=== PATIENT | female | born 1945 | race Caucasian/White ===

== ENCOUNTER → 2016-08-14 | Outpatient (CLI) | payer MEDICARE ==
[~2016-08-14] MED LIST: AMIO200T42 PO; APIX5TAB PO; COREG PO; LACT1CAP24 PO; LEVO750T26 PO; LIPITOR PO; LOSA25TA5 PO; METH4TAB2 PO; MULT-717 PO; PT WILL BRING LIST; SPIR25TA3 PO; VALS40TA2 PO; WARF2TAB PO
[2016-08-14 13:20] LABS: TOTAL IRON BINDING CAPACITY 388 mcg/dL (250-450)
== END | disposition home or self-care (01) ==
LOC: CFH 10:36
PROVIDERS: ATTEND Internal Medicine Cardiovascular Disease
DX: I35.8 Other nonrheumatic aortic valve disorders (principal); I34.0 Nonrheumatic mitral (valve) insufficiency; I07.1 Rheumatic tricuspid insufficiency; I37.1 Nonrheumatic pulmonary valve insufficiency; I35.1 Nonrheumatic aortic (valve) insufficiency; I48.91 Unspecified atrial fibrillation; I10 Essential (primary) hypertension; Z79.01 Long term (current) use of anticoagulants; I42.9 Cardiomyopathy, unspecified
CPT/HCPCS: 36415; 83540; 83550; 85025; 93306

== ENCOUNTER 2016-08-30 10:22 | Inpatient (IN) | payer MEDICARE ==
[~2016-08-30] VITALS: Ht 160 cm; Wt 56.2 kg
[2016-08-30] MEDS ORDERED: HYDR-3144 PO (10:42)
[2016-08-30] MEDS ORDERED: PROM25TA10 PO (10:42)
[2016-08-30] MEDS ORDERED: SODIUM CHLORIDE 0.9% 1,000ML IVBOLUS ONE (11:00)
[2016-08-30] MEDS ORDERED: SODIUM CHLORIDE FLUSH 10ML SYR IVF ONE (11:00)
[2016-08-30] MEDS ORDERED: ONDANSETRON 2MG/ML, 2ML IVPush ONE (11:00)
[2016-08-30] MEDS ORDERED: MORPHINE SULFATE 4 MG/ML, 1ML ONE ×2 (11:08→11:30)
[2016-08-30] MEDS ORDERED: ONDANSETRON 2MG/ML, 2ML ONE (11:08)
[2016-08-30] MEDS: MORPHINE SULFATE 4 MG/ML, 1ML IVPush PRN ×2 (11:11→11:33)
[2016-08-30 11:28] LABS: BLOOD UREA NITROGEN 17 mg/dL (7-18)
[2016-08-30] MEDS ORDERED: TEMAZEPAM 15 MG CAPSULE PO PRN (14:00)
[2016-08-30] MEDS ORDERED: POLYETHYLENE GLYCOL 17 GM PACKET PO PRN (14:00)
[2016-08-30] MEDS ORDERED: MORPHINE SULFATE 4 MG/ML, 1ML IVPush PRN (14:00)
[2016-08-30] MEDS ORDERED: DOCUSATE 100 MG CAPSULE PO PRN (14:00)
[2016-08-30] MEDS: D5%-0.45% NACL 1,000 ML IV SCH ×2 (15:10→23:17)
[2016-08-30 16:50] VITALS: BP 127/77
[2016-08-30] MEDS: CARVEDILOL 6.25 MG TABLET PO SCH (17:44)
[2016-08-30] MEDS: HYDROcodone/APAP 5/325 TABLET PO PRN (17:46)
[2016-08-30] MEDS: ONDANSETRON 2MG/ML, 2ML IVP PRN (18:52)
[2016-08-30] MEDS: APIXABAN 2.5 MG TABLET PO SCH (20:35)
[2016-08-30] MEDS ORDERED: APIXABAN 5 MG TABLET PO SCH (21:00)
[2016-08-30 21:14] VITALS: BP 104/62
[2016-08-31] MEDS: HYDROcodone/APAP 5/325 TABLET PO PRN ×7 (00:37→22:40)
[2016-08-31] MEDS: ONDANSETRON 2MG/ML, 2ML IVP PRN ×3 (01:02→22:40)
[2016-08-31 03:31] VITALS: BP 127/76
[2016-08-31] MEDS: CARVEDILOL 6.25 MG TABLET PO SCH ×2 (05:33→18:04)
[2016-08-31] MEDS: D5%-0.45% NACL 1,000 ML IV SCH ×2 (05:34→14:41)
[2016-08-31] MEDS: APIXABAN 2.5 MG TABLET PO SCH ×2 (08:10→20:11)
[2016-08-31 08:29] VITALS: BP 129/77
[2016-08-31] MEDS: PROMETHAZINE 25 MG SUPP PR PRN (12:59)
[2016-08-31 14:30] VITALS: BP 113/73
[2016-08-31 19:43] VITALS: BP 97/57
[2016-09-01 01:10] VITALS: BP 116/70
[2016-09-01] MEDS: PROMETHAZINE 25 MG SUPP PR PRN (02:23)
[2016-09-01] MEDS: HYDROcodone/APAP 5/325 TABLET PO PRN (05:17)
[2016-09-01] MEDS: CARVEDILOL 6.25 MG TABLET PO SCH ×2 (05:17→17:37)
[2016-09-01] MEDS: ONDANSETRON 2MG/ML, 2ML IVP PRN ×2 (05:22→10:23)
[2016-09-01 08:14] VITALS: BP 121/72
[2016-09-01] MEDS: APIXABAN 2.5 MG TABLET PO SCH ×2 (08:43→20:33)
[2016-09-01] MEDS: D5%-0.45% NACL 1,000 ML IV SCH (09:32)
[2016-09-01 13:53] VITALS: BP 108/70
[2016-09-01 18:58] VITALS: BP 126/70
[2016-09-01] MEDS: ACETAMINOPHEN 325 MG TABLET PO PRN (21:40)
[2016-09-02] MEDS: ONDANSETRON 2MG/ML, 2ML IVP PRN (00:23)
[2016-09-02] MEDS: ACETAMINOPHEN 325 MG TABLET PO PRN ×3 (01:44→09:30)
[2016-09-02 03:46] VITALS: BP 118/73
[2016-09-02] MEDS: D5%-0.45% NACL 1,000 ML IV SCH (05:16)
[2016-09-02] MEDS: CARVEDILOL 6.25 MG TABLET PO SCH (06:02)
[2016-09-02 07:30] VITALS: BP 103/67
[2016-09-02] MEDS: APIXABAN 2.5 MG TABLET PO SCH (08:19)
[2016-09-02] MEDS ORDERED: Tramadol Hcl PO (08:35)
== END 2016-09-02 10:07 | disposition home or self-care (01) | DRG 560 ==
LOC: ED 11:53 → EDIP 11:54 → ED 12:01 → 4NOR 13:03 → DCLOUNGE 09-02 09:56
PROVIDERS: ADMIT Internal Medicine; ATTEND Internal Medicine
DX: T84.84XA Pain due to internal orthopedic prosthetic devices, implants and grafts, initial encounter (principal); I42.9 Cardiomyopathy, unspecified; R11.2 Nausea with vomiting, unspecified; E86.0 Dehydration; I10 Essential (primary) hypertension; M25.559 Pain in unspecified hip; G89.18 Other acute postprocedural pain; M25.551 Pain in right hip; K59.00 Constipation, unspecified; I48.91 Unspecified atrial fibrillation; I25.10 Atherosclerotic heart disease of native coronary artery without angina pectoris; M19.90 Unspecified osteoarthritis, unspecified site; D64.9 Anemia, unspecified; T40.605A Adverse effect of unspecified narcotics, initial encounter; Z83.3 Family history of diabetes mellitus; Z85.3 Personal history of malignant neoplasm of breast; Z90.10 Acquired absence of unspecified breast and nipple
CPT/HCPCS: 36415; 80048; 82040; 83605; 85025; 96374; 96375; J2405; J7030

== ENCOUNTER → 2017-10-20 | Outpatient (CLI) | payer MEDICARE ==
[~2017-10-20] MED LIST changes: +HYDR-3245 PO; +PROM25TA10 PO; +Tramadol Hcl PO
[2017-10-20 16:05] LABS: ANION GAP 7 mmol/L (5-15); CALCIUM 9.4 mg/dL (8.5-10.1); CHLORIDE 105 mmol/L (98-107)
[2017-10-20 16:08] LABS: CREATININE 1.28 mg/dL (0.55-1.02)
== END | disposition home or self-care (01) ==
LOC: CFH 11:43
PROVIDERS: ATTEND Internal Medicine Cardiovascular Disease
DX: N18.9 Chronic kidney disease, unspecified (principal)
CPT/HCPCS: 36415; 80048

== ENCOUNTER → 2017-11-27 | Outpatient (CLI) | payer MEDICARE ==
[~2017-11-27] MED LIST changes: -SPIR25TA3 PO; +SPIR25TA5 PO
== END | disposition home or self-care (01) ==
LOC: CVU 10:33
PROVIDERS: ATTEND Internal Medicine Cardiovascular Disease
DX: I34.0 Nonrheumatic mitral (valve) insufficiency (principal); I42.8 Other cardiomyopathies
CPT/HCPCS: 0399T; 93306

== ENCOUNTER → 2018-03-12 | Outpatient (CLI) | payer MEDICARE ==
[~2018-03-12] MED LIST changes: -LOSA25TA5 PO; +LOSA25TA6 PO
== END | disposition home or self-care (01) ==
LOC: RAD 07:48
PROVIDERS: ATTEND Internal Medicine Cardiovascular Disease
DX: I42.8 Other cardiomyopathies (principal)
CPT/HCPCS: 78472; A9560

== ENCOUNTER 2018-05-02 03:21 | Inpatient (IN) | payer MEDICARE ==
[~2018-05-02] VITALS: Ht 160 cm; Wt 59.6 kg
[~2018-05-02 03:21] MED LIST changes: +LOSA25TA25 PO; -LOSA25TA6 PO
[2018-05-02] MEDS ORDERED: LOSA25TA25 PO (03:29)
--- NOTE | 2018-05-02 03:32 | NUR ---
PT WHEELED FROM TRIAGE TO ROOM WITH FAMILY AT .
[2018-05-02 04:10] LABS: BASOPHILS # (AUTO) 0.08 x10^3/uL (0-0.1); BASOPHILS % (AUTO) 1 % (0-1); EOSINOPHILS # (AUTO) 0.21 x10^3/uL (0-0.4); EOSINOPHILS % (AUTO) 3 % (1-7); LYMPHOCYTES # (AUTO) 1.12 x10^3/uL (1-3.4); LYMPHOCYTES % (AUTO) 17 % (22-44); MD NO; MEAN CORPUSCULAR HEMOGLOBIN 36.9 pg (27.0-34.8); MEAN CORPUSCULAR HGB CONC 34.1 g/dL (32.4-35.8); MEAN PLATELET VOLUME 8.8 fL (7.4-10.4); MONOCYTES # (AUTO) 0.62 x10^3/uL (0.2-0.8); MONOCYTES % (AUTO) 10 % (2-9); NEUTROPHILS # (AUTO) 4.52 x10^3/uL (1.8-6.8); NEUTROPHILS % (AUTO) 69 % (42-75); PLATELET COUNT 193 x10^3/uL (130-400); RED BLOOD COUNT 3.46 x10^6/uL (3.82-5.3); RED CELL DISTRIBUTION WIDTH 15.1 % (9.6-15.2)
[2018-05-02 04:20] LABS: ALBUMIN 3.5 g/dL (3.4-5.0); ANION GAP 10 mmol/L (5-15); CALCIUM 8.4 mg/dL (8.5-10.1); CHLORIDE 106 mmol/L (98-107)
[2018-05-02 04:25] LABS: ALANINE AMINOTRANSFERASE 60 U/L (12-78); ALKALINE PHOSPHATASE 180 U/L (45-117); BILIRUBIN,TOTAL 0.5 mg/dL (0.2-1.0); CREATININE 1.32 mg/dL (0.55-1.02); TOTAL PROTEIN 6.4 g/dL (6.4-8.2); TROPONIN I 0.019 ng/mL (0.000-0.045)
[2018-05-02] MEDS ORDERED: METOPROLOL 1 MG/ML, 5ML ONE ×2 (04:43→05:00)
[2018-05-02] MEDS: METOPROLOL 1 MG/ML, 5ML IVPush PRN ×3 (04:52→05:11)
--- NOTE | 2018-05-02 04:52 | NUR ---
PT MEDICATED PER MAR FOR HEART RATE. PT DENIES ANY OTHER NEEDS AT THIS TIME. VSS AND UPDATED IN EMR. PT HAS CALL LIGHT WITHIN REACH.
--- NOTE | 2018-05-02 05:12 | NUR ---
PT MEDICATED PER MAR. PT TOLERATED WELL. QUESTIONS REGARDING AFIB AND EDUCATION PROVIDED TO AND PT. PT DENIES ANY OTHER NEEDS AT THIS TIME. CALL LIGHT IS WITHIN REACH.
--- NOTE | 2018-05-02 06:13 | NUR ---
REPORT OF PT TO PEPITO GARCIA. ALL QUESTIONS ANSWERED. PT EDUCATED ON ROOM ASSINGMENT AND VERBALIZES UNDERSTANDING. PT TRANSPORTED BY TECH TO FLOOR.
[2018-05-02 06:32] VITALS: BP 98/75
[2018-05-02] MEDS ORDERED: CARV6.2512 PO (06:32)
[2018-05-02] MEDS ORDERED: FUROSEMIDE 20 MG/2 ML IV ONE (08:00)
[2018-05-02 08:13] VITALS: BP 96/57
[2018-05-02] MEDS ORDERED: AMIODARONE 900 MG in DEXTROSE 5% 482 ML IV PRN (11:00)
[2018-05-02] MEDS ORDERED: AMIODARONE 150 MG in DEXTROSE 5% 100 ML IV ONE (11:00)
[2018-05-02] MEDS ORDERED: FILTER 0.22 MICRON FOR AMIODARONE IV PRN (11:00)
[2018-05-02] MEDS ORDERED: MAGNESIUM SULFATE 1 GM in SODIUM CHLORIDE 0.9% 50 ML IV ONE (11:30)
[2018-05-02] MEDS ORDERED: GUAIFENESIN/DM 200-20MG, 10ML UDC PO PRN (11:30)
[2018-05-02] MEDS ORDERED: ACETAMINOPHEN 325 MG TABLET PO PRN (11:30)
[2018-05-02] MEDS ORDERED: DOCUSATE 100 MG CAPSULE PO PRN (11:30)
[2018-05-02 13:22] VITALS: BP 95/67
[2018-05-02 19:58] VITALS: BP 92/71
[2018-05-02] MEDS: TRAZODONE 50MG TABLET PO PRN (22:16)
[2018-05-02] MEDS: APIXABAN 5 MG TABLET PO SCH (22:16)
[2018-05-02] MEDS: CARVEDILOL 6.25 MG TABLET PO SCH (22:16)
[2018-05-02] MEDS: AMIODARONE 200 MG TABLET PO SCH (22:16)
[2018-05-03 03:55] VITALS: BP 97/59
[2018-05-03 06:54] VITALS: BP 101/73
[2018-05-03] MEDS: APIXABAN 5 MG TABLET PO SCH ×2 (07:53→21:01)
[2018-05-03] MEDS: AMIODARONE 200 MG TABLET PO SCH ×2 (07:53→21:01)
[2018-05-03] MEDS: CARVEDILOL 6.25 MG TABLET PO SCH ×2 (07:54→21:02)
[2018-05-03] MEDS ORDERED: LOSARTAN 25MG TABLET PO SCH (09:00)
[2018-05-03] MEDS ORDERED: FUROSEMIDE 20 MG/2 ML IV ONE (10:30)
[2018-05-03] MEDS ORDERED: PROPOFOL 10 MG/ML, 20ML ONE (10:31)
[2018-05-03] MEDS: BENZONATATE 100 MG CAPSULE PO PRN ×3 (11:16→21:18)
[2018-05-03] MEDS: FUROSEMIDE 40 MG/4 ML IV SCH ×2 (11:50→21:02)
[2018-05-03 12:12] VITALS: BP 90/66
[2018-05-03 19:12] VITALS: BP 103/70
[2018-05-03] MEDS: TRAZODONE 50MG TABLET PO PRN (21:01)
[2018-05-04 01:37] VITALS: BP 98/62
[2018-05-04 05:20] LABS: ANION GAP 9 mmol/L (5-15); CALCIUM 8.2 mg/dL (8.5-10.1); CHLORIDE 101 mmol/L (98-107); CREATININE 1.45 mg/dL (0.55-1.02)
[2018-05-04 07:02] VITALS: BP 105/71
[2018-05-04] MEDS: APIXABAN 5 MG TABLET PO SCH (07:53)
[2018-05-04] MEDS: CARVEDILOL 6.25 MG TABLET PO SCH (07:54)
[2018-05-04] MEDS: AMIODARONE 200 MG TABLET PO SCH (07:54)
[2018-05-04] MEDS: BENZONATATE 100 MG CAPSULE PO PRN (08:01)
[2018-05-04] MEDS ORDERED: POTASSIUM CHLORIDE 20 MEQ TAB.ER.PRT PO SCH ×2 (08:30→17:00)
[2018-05-04] MEDS ORDERED: LOSARTAN 25MG TABLET PO SCH (09:00)
[2018-05-04] MEDS ORDERED: AMIODARONE 200 MG TABLET PO SCH (09:00)
[2018-05-04] MEDS ORDERED: AMIO200T42 PO (09:43)
[2018-05-04] MEDS ORDERED: FURO20TA3 PO (09:43)
[2018-05-04] MEDS ORDERED: POTA20TA6 PO (09:43)
[2018-05-04] MEDS ORDERED: FUROSEMIDE 20 MG TABLET ONE (11:37)
[2018-05-05] MEDS ORDERED: FUROSEMIDE 20 MG TABLET PO SCH (09:00)
[2018-05-05] MEDS ORDERED: POTASSIUM CHLORIDE 10 MEQ TABLET.ER PO SCH (09:00)
== END 2018-05-04 11:51 | disposition home or self-care (01) | DRG 291 ==
LOC: ED 04:49 → EDIP 05:21 → 5SO 06:18 → DCLOUNGE 05-04 11:35
PROVIDERS: ADMIT Internal Medicine; ATTEND Internal Medicine
PROC: 5A2204Z Restoration of Cardiac Rhythm, Single (ICD-10-PCS; principal; 2018-05-03 10:30)
DX: I13.0 Hypertensive heart and chronic kidney disease with heart failure and stage 1 through stage 4 chronic kidney disease, or unspecified chronic kidney disease (principal); I50.23 Acute on chronic systolic (congestive) heart failure; D68.69 Other thrombophilia; I48.0 Paroxysmal atrial fibrillation; N18.3 Chronic kidney disease, stage 3 (moderate); M19.90 Unspecified osteoarthritis, unspecified site; Z66 Do not resuscitate; I44.7 Left bundle-branch block, unspecified; I42.9 Cardiomyopathy, unspecified; I25.10 Atherosclerotic heart disease of native coronary artery without angina pectoris; E87.6 Hypokalemia; Z79.01 Long term (current) use of anticoagulants; Z82.49 Family history of ischemic heart disease and other diseases of the circulatory system; Z83.3 Family history of diabetes mellitus; Z85.3 Personal history of malignant neoplasm of breast; Z90.11 Acquired absence of right breast and nipple; Z96.643 Presence of artificial hip joint, bilateral; B34.9 Viral infection, unspecified; D50.9 Iron deficiency anemia, unspecified
CPT/HCPCS: 36415; 71045; 80048; 80053; 83735; 83880; 84443; 84484; 85025; 93005; 96374; 99285; G0378; J1940; J2704; J3475; J0282; J7060

== ENCOUNTER 2018-05-13 07:29 | Day surgery (SDC) | payer MEDICARE ==
[~2018-05-13] VITALS: Ht 160 cm; Wt 53.6 kg
[~2018-05-13 07:29] MED LIST changes: +CARV6.2512 PO; +FURO20TA3 PO; +POTA20TA6 PO
[2018-05-13 08:07] VITALS: BP 98/63
[2018-05-13 08:30] LABS: ANION GAP 11 mmol/L (5-15); CALCIUM 9.2 mg/dL (8.5-10.1); CHLORIDE 111 mmol/L (98-107); CREATININE 1.56 mg/dL (0.55-1.02)
[2018-05-13] MEDS ORDERED: PROPOFOL 10 MG/ML, 20ML ONE (09:43)
== END 2018-05-13 10:59 | disposition home or self-care (01) ==
LOC: CACL 07:29
PROVIDERS: ATTEND Internal Medicine Cardiovascular Disease
DX: I48.0 Paroxysmal atrial fibrillation (principal); I42.9 Cardiomyopathy, unspecified; I34.0 Nonrheumatic mitral (valve) insufficiency; I50.21 Acute systolic (congestive) heart failure; E78.00 Pure hypercholesterolemia, unspecified; D64.9 Anemia, unspecified; Z79.01 Long term (current) use of anticoagulants
CPT/HCPCS: 36415; 80048; 92960; J2704

== ENCOUNTER 2018-06-01 11:19 | Outpatient (CLI) | payer MEDICARE ==
[2018-06-01 12:47] LABS: ANION GAP 5 mmol/L (5-15); CALCIUM 9.1 mg/dL (8.5-10.1); CHLORIDE 109 mmol/L (98-107); CREATININE 1.33 mg/dL (0.55-1.02)
== END 2018-06-01 23:59 | disposition home or self-care (01) ==
LOC: CFH 11:19
PROVIDERS: ATTEND Internal Medicine Cardiovascular Disease
DX: I48.91 Unspecified atrial fibrillation (principal); N18.9 Chronic kidney disease, unspecified
CPT/HCPCS: 36415; 80048

== ENCOUNTER → 2018-07-16 | Outpatient (CLI) | payer MEDICARE ==
[2018-07-16 12:54] LABS: BASOPHILS # (AUTO) 0.05 x10^3/uL (0-0.1); BASOPHILS % (AUTO) 1 % (0-1); EOSINOPHILS % (AUTO) 3 % (1-7); LYMPHOCYTES # (AUTO) 1.23 x10^3/uL (1-3.4); LYMPHOCYTES % (AUTO) 20 % (22-44); MD NO; MEAN CORPUSCULAR HEMOGLOBIN 34.3 pg (27.0-34.8); MEAN CORPUSCULAR HGB CONC 33.9 g/dL (32.4-35.8); MEAN CORPUSCULAR VOLUME 101.3 fL (80-100); MEAN PLATELET VOLUME 9.8 fL (7.4-10.4); MONOCYTES # (AUTO) 0.65 x10^3/uL (0.2-0.8); MONOCYTES % (AUTO) 11 % (2-9); NEUTROPHILS # (AUTO) 3.97 x10^3/uL (1.8-6.8); NEUTROPHILS % (AUTO) 65 % (42-75); PLATELET COUNT 235 x10^3/uL (130-400); RED BLOOD COUNT 4.22 x10^6/uL (3.82-5.3); RED CELL DISTRIBUTION WIDTH 12.9 % (9.6-15.2)
[2018-07-16 15:01] LABS: CHLORIDE 110 mmol/L (98-107)
[2018-07-16 15:31] LABS: ALANINE AMINOTRANSFERASE 21 U/L (12-78); ALBUMIN 3.7 g/dL (3.4-5.0); ALKALINE PHOSPHATASE 92 U/L (45-117); ANION GAP 7 mmol/L (5-15); BILIRUBIN,TOTAL 1.1 mg/dL (0.2-1.0); CALCIUM 9.3 mg/dL (8.5-10.1); CREATININE 1.33 mg/dL (0.55-1.02); T4 (THYROXINE) 8.5 mcg/dL (4.8-13.9); TOTAL PROTEIN 7.3 g/dL (6.4-8.2)
== END | disposition home or self-care (01) ==
LOC: CFH 08:50
PROVIDERS: ATTEND Internal Medicine Cardiovascular Disease
DX: I48.91 Unspecified atrial fibrillation (principal); D64.9 Anemia, unspecified; I42.8 Other cardiomyopathies; I13.0 Hypertensive heart and chronic kidney disease with heart failure and stage 1 through stage 4 chronic kidney disease, or unspecified chronic kidney disease; I50.23 Acute on chronic systolic (congestive) heart failure; N18.3 Chronic kidney disease, stage 3 (moderate); J84.10 Pulmonary fibrosis, unspecified
CPT/HCPCS: 36415; 71046; 80053; 84436; 84443; 84481; 85025

== ENCOUNTER → 2018-07-17 | Outpatient (CLI) | payer MEDICARE | END | disposition home or self-care (01) | LOC: CFH 10:35 | PROVIDERS: ATTEND Internal Medicine Cardiovascular Disease | DX: I08.3 Combined rheumatic disorders of mitral, aortic and tricuspid valves (principal); I10 Essential (primary) hypertension; I48.91 Unspecified atrial fibrillation; Z85.3 Personal history of malignant neoplasm of breast; R29.898 Other symptoms and signs involving the musculoskeletal system | CPT/HCPCS: 93306 ==

== ENCOUNTER 2018-09-24 06:27 | Observation (INO) | payer MEDICARE ==
[2018-09-21 10:52] VITALS: BP 134/86
[2018-09-21 10:55] LABS: BASOPHILS # (AUTO) 0.05 x10^3/uL (0-0.1); BASOPHILS % (AUTO) 1 % (0-1); EOSINOPHILS # (AUTO) 0.27 x10^3/uL (0-0.4); EOSINOPHILS % (AUTO) 4 % (1-7); LYMPHOCYTES # (AUTO) 1.22 x10^3/uL (1-3.4); LYMPHOCYTES % (AUTO) 20 % (22-44); MD NO; MEAN CORPUSCULAR HEMOGLOBIN 33.7 pg (27.0-34.8); MEAN CORPUSCULAR HGB CONC 32.3 g/dL (32.4-35.8); MEAN CORPUSCULAR VOLUME 104.3 fL (80-100); MEAN PLATELET VOLUME 7.7 fL (7.4-10.4); MONOCYTES # (AUTO) 0.63 x10^3/uL (0.2-0.8); MONOCYTES % (AUTO) 10 % (2-9); NEUTROPHILS # (AUTO) 4.04 x10^3/uL (1.8-6.8); NEUTROPHILS % (AUTO) 65 % (42-75); PLATELET COUNT 261 x10^3/uL (130-400); RED BLOOD COUNT 4.14 x10^6/uL (3.82-5.3); RED CELL DISTRIBUTION WIDTH 15.5 % (9.6-15.2)
[2018-09-21 11:15] LABS: ANION GAP 10 mmol/L (5-15); CALCIUM 9.7 mg/dL (8.5-10.1); CHLORIDE 108 mmol/L (98-107)
[2018-09-21 11:16] LABS: CREATININE 1.52 mg/dL (0.55-1.02)
[~2018-09-24] VITALS: Ht 160 cm; Wt 50.9 kg
[~2018-09-24 06:27] MED LIST changes: +OMEP20TA62 PO
[2018-09-24] MEDS ORDERED: CEFAZOLIN PMX 1GM/50ML 50 ML IVPB ONE (07:00)
[2018-09-24] MEDS ORDERED: PROPOFOL 50 ML ONE (07:55)
[2018-09-24] MEDS ORDERED: FENTANYL PF 250 MCG/5ML ONE (07:55)
[2018-09-24] MEDS ORDERED: CEFAZOLIN 1,000 MG ONE (07:57)
[2018-09-24] MEDS ORDERED: LIDOCAINE 1%, 20ML ONE (07:57)
[2018-09-24] MEDS ORDERED: ONDANSETRON 2MG/ML, 2ML ONE (08:01)
[2018-09-24] MEDS ORDERED: ONDANSETRON 2MG/ML, 2ML IV PRN (09:30)
[2018-09-24] MEDS ORDERED: EPHEDRINE 50 MG/ML, 1ML IVPush PRN (09:30)
[2018-09-24] MEDS ORDERED: DIAZEPAM 5 MG/ML, 2ML IVPush PRN (09:30)
[2018-09-24] MEDS ORDERED: EPHEDRINE 50 MG/ML, 1ML IM PRN (09:30)
[2018-09-24] MEDS ORDERED: PROMETHAZINE 25 MG/ML, 1ML IV PRN (09:30)
[2018-09-24] MEDS ORDERED: ONDANSETRON ODT 8 MG PO PRN (09:30)
[2018-09-24] MEDS ORDERED: OXYcodone 5 MG/5 ML ORAL.SOL UDC PO PRN (09:30)
[2018-09-24] MEDS ORDERED: MIDAZOLAM 1 MG/ML, 2ML IV PRN (09:30)
[2018-09-24] MEDS ORDERED: DIPHENHYDRAMINE 50 MG/ML, 1ML IVPush PRN (09:30)
[2018-09-24] MEDS ORDERED: FENTANYL PF 100 MCG/2ML IV PRN (09:30)
[2018-09-24] MEDS ORDERED: HYDROmorphone 2 MG/ML, 1ML IVPush PRN (09:30)
[2018-09-24] MEDS ORDERED: ACETAMINOPHEN 325 MG TABLET PO PRN ×2 (09:30→10:00)
[2018-09-24] MEDS ORDERED: HOLD MEDICATION MC PRN (10:00)
[2018-09-24] MEDS ORDERED: FENTANYL PF 100 MCG/2ML ONE (10:08)
[2018-09-24] MEDS ORDERED: HYDROcodone/APAP 7.5-325MG/15ML UDC ONE (10:08)
[2018-09-24] MEDS: SODIUM CHLORIDE 0.9% 1,000 ML IV SCH ×3 (10:15→22:38)
[2018-09-24] MEDS ORDERED: HYDROcodone/APAP 7.5-325MG/15ML UDC PO ONE (10:30)
[2018-09-24 11:15] VITALS: BP 109/68
[2018-09-24 14:30] VITALS: BP 82/48
[2018-09-24] MEDS: CEFAZOLIN PMX 1GM/50ML 50 ML IVPB SCH (16:54)
[2018-09-24 18:34] VITALS: BP 89/49
[2018-09-24] MEDS: SODIUM CHLORIDE FLUSH 10ML SYR IVF SCH (20:18)
[2018-09-24] MEDS: APIXABAN 5 MG TABLET PO SCH (20:19)
[2018-09-24] MEDS: CARVEDILOL 6.25 MG TABLET PO SCH (20:19)
[2018-09-24] MEDS: POTASSIUM CHLORIDE 20 MEQ TAB.ER.PRT PO SCH (20:19)
[2018-09-24] MEDS: FUROSEMIDE 20 MG TABLET PO SCH (20:19)
[2018-09-24 20:22] VITALS: BP 103/56
[2018-09-25] MEDS: CEFAZOLIN PMX 1GM/50ML 50 ML IVPB SCH (00:08)
[2018-09-25 02:38] VITALS: BP 100/50
[2018-09-25] MEDS ORDERED: OMEPRAZOLE 20 MG CAPSULE.DR PO SCH (06:00)
[2018-09-25 08:41] VITALS: BP 89/52
[2018-09-25] MEDS ORDERED: LOSARTAN 25MG TABLET PO SCH (09:00)
[2018-09-25] MEDS ORDERED: AMIODARONE 200 MG TABLET PO SCH (09:00)
[2018-09-25] MEDS ORDERED: MULTIVITAMIN 1 TABLET PO SCH (09:00)
[2018-09-25 09:55] VITALS: BP 102/66
[2018-09-25] MEDS: APIXABAN 5 MG TABLET PO SCH (09:56)
[2018-09-25] MEDS: CARVEDILOL 6.25 MG TABLET PO SCH (09:57)
[2018-09-25] MEDS: SODIUM CHLORIDE FLUSH 10ML SYR IVF SCH (09:57)
[2018-09-25] MEDS: POTASSIUM CHLORIDE 20 MEQ TAB.ER.PRT PO SCH (09:57)
[2018-09-25] MEDS: FUROSEMIDE 20 MG TABLET PO SCH (09:57)
== END 2018-09-25 11:55 | disposition home or self-care (01) ==
LOC: CACL 06:27 → ORIP 09:34 → 5SO 11:08 → DCLOUNGE 09-25 11:45
PROVIDERS: ADMIT Internal Medicine Cardiovascular Disease; ATTEND Internal Medicine Cardiovascular Disease
DX: I42.9 Cardiomyopathy, unspecified (principal); I44.7 Left bundle-branch block, unspecified; I49.01 Ventricular fibrillation; I50.9 Heart failure, unspecified; E78.5 Hyperlipidemia, unspecified; E78.00 Pure hypercholesterolemia, unspecified; I48.91 Unspecified atrial fibrillation; I42.8 Other cardiomyopathies; Z79.899 Other long term (current) drug therapy
CPT/HCPCS: 33225; 33249; 36415; 71045; 71046; 80048; 85025; 96365; 96366; C1769; C1779; C1882; C1887; C1892; C1895; C1900; G0378; J0690; J2405; J2704; J3010; J3490; J7030; Q9967

== ENCOUNTER → 2019-02-26 | Outpatient (CLI) | payer MEDICARE | END | disposition home or self-care (01) | LOC: CVU 13:31 | PROVIDERS: ATTEND Internal Medicine Cardiovascular Disease | DX: I08.3 Combined rheumatic disorders of mitral, aortic and tricuspid valves (principal) | CPT/HCPCS: 93306 ==

== ENCOUNTER → 2019-04-14 | Outpatient (CLI) | payer MEDICARE ==
[2019-04-14 13:06] LABS: MEAN CORPUSCULAR HEMOGLOBIN 37.6 pg (27.0-34.8); MEAN CORPUSCULAR HGB CONC 33.6 g/dL (32.4-35.8); MEAN CORPUSCULAR VOLUME 111.9 fL (80-100); MEAN PLATELET VOLUME 8.3 fL (7.4-10.4); PLATELET COUNT 211 x10^3/uL (130-400); RED CELL DISTRIBUTION WIDTH 13.4 % (9.6-15.2)
[2019-04-14 13:24] LABS: ALBUMIN 4.5 g/dL (3.4-5.0); ANION GAP 11 mmol/L (5-15); BASOPHILS # (AUTO) 0.05 x10^3/uL (0-0.1); BASOPHILS % (AUTO) 1 % (0-1); CALCIUM 9.8 mg/dL (8.5-10.1); CHLORIDE 106 mmol/L (98-107); EOSINOPHILS # (AUTO) 0.12 x10^3/uL (0-0.4); EOSINOPHILS % (AUTO) 2 % (1-7); LYMPHOCYTES # (AUTO) 1.23 x10^3/uL (1-3.4); LYMPHOCYTES % (AUTO) 23 % (22-44); MD SCAN; MONOCYTES # (AUTO) 0.53 x10^3/uL (0.2-0.8); MONOCYTES % (AUTO) 10 % (2-9); NEUTROPHILS # (AUTO) 3.35 x10^3/uL (1.8-6.8); NEUTROPHILS % (AUTO) 64 % (42-75)
[2019-04-14 13:37] LABS: ALANINE AMINOTRANSFERASE 31 U/L (12-78); ALKALINE PHOSPHATASE 72 U/L (45-117); BILIRUBIN,TOTAL 0.9 mg/dL (0.2-1.0); CREATININE 1.47 mg/dL (0.55-1.02); T4 (THYROXINE) 5.9 mcg/dL (4.8-13.9); TOTAL PROTEIN 8.1 g/dL (6.4-8.2)
== END | disposition home or self-care (01) ==
LOC: CFH 11:12
PROVIDERS: ATTEND Internal Medicine Cardiovascular Disease
DX: J84.10 Pulmonary fibrosis, unspecified (principal); I42.8 Other cardiomyopathies; I48.91 Unspecified atrial fibrillation; D64.9 Anemia, unspecified; N18.9 Chronic kidney disease, unspecified; Z95.810 Presence of automatic (implantable) cardiac defibrillator; Z96.89 Presence of other specified functional implants
CPT/HCPCS: 36415; 71046; 80053; 84436; 84443; 84481; 85025

== ENCOUNTER → 2021-01-26 | Outpatient (CLI) | payer MEDICARE ==
[~2021-01-26] MED LIST changes: -HYDR-3245 PO; +HYDR1TAB53 PO; +POTA-143 PO; -POTA20TA6 PO
== END | disposition home or self-care (01) ==
LOC: RAD 13:13
PROVIDERS: ATTEND Internal Medicine Cardiovascular Disease
DX: J92.9 Pleural plaque without asbestos (principal); J98.4 Other disorders of lung; J84.10 Pulmonary fibrosis, unspecified
CPT/HCPCS: 71250